=== PATIENT | female | born 1980 | race Caucasian/White ===

== ENCOUNTER 2022-04-15 15:06 | Emergency (ER) | payer MEDICAID ==
[~2022-04-15] VITALS: Ht 167.6 cm; Wt 118.2 kg
[2022-04-15 15:25] VITALS: BP 182/105
--- NOTE | 2022-04-15 16:06 | NUR ---
wheeled to er FTD. wound undressed, appears dehisced lateral left side of ankle. denies odor, pain. on bactrim at home.
--- NOTE | 2022-04-15 16:17 | NUR ---
dr. pham at bedside.
== END 2022-04-15 16:35 | disposition home or self-care (01) ==
LOC: ER 15:07
DX: S91.002A Unspecified open wound, left ankle, initial encounter (principal); X58.XXXA Exposure to other specified factors, initial encounter; Y93.89 Activity, other specified; Y92.89 Other specified places as the place of occurrence of the external cause; Y99.8 Other external cause status
CPT/HCPCS: 99281; A6449

== ENCOUNTER 2023-07-07 14:05 | Emergency (ER) | payer MEDICAID ==
[~2023-07-07] VITALS: Ht 167.6 cm; Wt 120.6 kg
[2023-07-07 14:23] VITALS: BP 159/106; PULSE 95; RESP 17; TEMP 98.6; O2SAT 98
[2023-07-07] MEDS ORDERED: sterile talc powder 5 GM, BUPIVAcaine 0.5% inj/PF 37.5 MG in normal saline 50ml IV soln... IPL ONE (15:30)
[2023-07-07] MEDS ORDERED: BUPIVAcaine 0.5% W/EPI /PF 10ml vial IJ STA (15:31)
[2023-07-07] MEDS ORDERED: NAPR-56 PO (16:30)
[2023-07-07] MEDS ORDERED: CLIN300C71 PO (16:30)
--- NOTE | 2023-07-07 18:47 | NUR ---
I have reviewed and agree with all interventions, assessments performed and documented by JONY MONTES
== END 2023-07-07 16:57 | disposition home or self-care (01) ==
LOC: ER 14:06
DX: L60.0 Ingrowing nail (principal); Z79.899 Other long term (current) drug therapy
CPT/HCPCS: 11765; 99284; 99285; A6449

== ENCOUNTER 2023-07-18 18:46 | Emergency (ER) | payer MEDICAID ==
[~2023-07-18] VITALS: Ht 167.6 cm; Wt 117.8 kg
[~2023-07-18 18:46] MED LIST: CLIN300C71 PO; NAPR-56 PO
[2023-07-18 19:04] VITALS: RESP 18; TEMP 97.7
[2023-07-19 01:33] VITALS: BP 167/104; PULSE 88; O2SAT 100
== END 2023-07-19 06:30 | disposition left against medical advice (07) ==
LOC: ER 18:47
DX: F41.9 Anxiety disorder, unspecified (principal); Z53.21 Procedure and treatment not carried out due to patient leaving prior to being seen by health care provider
CPT/HCPCS: 99281